=== PATIENT | female | born 1990 | race African-American/Black ===

== ENCOUNTER 2023-01-19 23:24 | Emergency (ER) | payer BC ==
[~2023-01-19] VITALS: Ht 177.8 cm; Wt 90.7 kg
--- NOTE | 2023-01-19 23:43 | NUR ---
PT [id number] FROM [facility]. PT WAS A CENTER FOR 3 DAYS. PT C/O PALPITATIONS TONIGHT AFTER TAKING 50 MG PO SEROQUEL. PT TAKEN TO ER BED 12, ER MD AT BEDSIDE. PT GETTING EKG. PT CONNECTED TO CARDIAC AND POX MONITOR. PT RESTLESS IN BED. PT CONNECTED TO CARDIAC AND POX MONITORS.
--- NOTE | 2023-01-19 23:54 | NUR ---
BLOOD COLLECTED AND SENT TO LAB
[2023-01-19] MEDS ORDERED: ASPIRIN 81 MG TAB.CHEW ONE (23:57)
[2023-01-19] MEDS ORDERED: LABETALOL HCL IV 100MG VIAL ONE (23:57)
[2023-01-19] MEDS ORDERED: LORAZEPAM INJ 2 MG/ML VIAL ONE (23:57)
[2023-01-20] MEDS ORDERED: LORAZEPAM INJ 2 MG/ML VIAL IV ONE
[2023-01-20] MEDS ORDERED: LABETALOL HCL IV 100MG VIAL IV ONE
[2023-01-20] MEDS ORDERED: ASPIRIN 81 MG TAB.CHEW PO ONE
[2023-01-20 00:01] LABS: BASOPHILS % (AUTO) 0.7 % (0.0-2.0); EOSINOPHILS % (AUTO) 0.2 % (0.0-6.0); HEMATOCRIT 42 % (33-45); LYMPHOCYTES # (AUTO) 2.9 K/uL (0.8-4.8); LYMPHOCYTES % (AUTO) 43.3 % (20.0-44.0); MEAN CORPUSCULAR HGB CONC 33 g/dl (31.0-36.0); MEAN CORPUSCULAR VOLUME 89 fL (82-100); MONOCYTES # (AUTO) 0.5 K/uL (0.1-1.30); MONOCYTES % (AUTO) 8.3 % (2.0-12.0); NEUTROPHILS # (AUTO) 3.1 K/uL (1.8-8.9); NEUTROPHILS % (AUTO) 47.5 % (43.0-81.0); PLATELET COUNT (AUTO) 176 K/uL (150-450); RED BLOOD CELL COUNT(AUTO) 4.76 MIL/uL (4.0-5.2); WHITE BLOOD COUNT (AUTO) 6.6 K/uL (4.3-11.0)
[2023-01-20 00:26] LABS: CALCIUM, SERUM 10.2 mg/dL (8.5-10.1); CARBON DIOXIDE 27 mmol/L (21-32); CHLORIDE 102 mmol/L (98-107); CREATININE 0.8 mg/dL (0.6-1.3); GLUCOSE 146 mg/dL (74-106); POTASSIUM 3.1 mmol/L (3.5-5.1); SODIUM SERUM 141 mmol/L (136-145); UREA NITROGEN, BLOOD 12 mg/dL (7-18)
[2023-01-20 00:46] LABS: ALANINE AMINOTRANSFERASE 18 U/L (12-78); ALBUMIN 3.9 g/dL (3.4-5.0); ALKALINE PHOSPHATASE 100 U/L (46-116); ASPARTATE AMINOTRANSFERASE 16 U/L (15-37); BILIRUBIN,DIRECT 0.1 mg/dL (0.0-0.2); BILIRUBIN,TOTAL 0.4 mg/dL (0.2-1.0); TOTAL PROTEIN, SERUM 7.6 g/dL (6.4-8.2)
--- NOTE | 2023-01-20 01:24 | NUR ---
SHARON FROM [facility] [phone]
--- NOTE | 2023-01-20 03:37 | NUR ---
ELECTRICIAN ELEVATOR MAINTENANCE AT PT'S BEDSIDE
--- NOTE | 2023-01-20 04:57 | NUR ---
GALINA AT [facility], WHEN READY FOR LENS POLISHER [phone]
[2023-01-20] MEDS ORDERED: POTASSIUM CHLORIDE 20 MEQ TAB.PRT.SR PO ONE (05:30)
--- NOTE | 2023-01-20 05:32 | NUR ---
patient transferred back to [facility] via private car. vs [facility].
[2023-01-20 05:33] VITALS: BP 93/63; TEMP 98.7; O2SAT 97
== END 2023-01-20 05:33 ==
LOC: ER 23:32
DX: F41.9 Anxiety disorder, unspecified (principal); R00.0 Tachycardia, unspecified; R00.2 Palpitations; I10 Essential (primary) hypertension; E11.9 Type 2 diabetes mellitus without complications; Z88.1 Allergy status to other antibiotic agents
CPT/HCPCS: 99285; 71045; 93005; 85025; 80048; 80076; 85378; 36415; 84484 ×2; 83880; 84702; 96374; 96375; J2060; J3490